=== PATIENT | male | born 1970 | race Caucasian/White ===

== ENCOUNTER 2016-09-26 01:27 | Emergency (ER) | payer BC, OTHER ==
[2016-09-26 03:59] VITALS: BP 123/80
--- NOTE | 2016-09-26 05:07 | ED ---
Yonathan Acosta Billy, scribed for Vinay Hauser MD on 09/26/16 at 0259 . Lower Extremity - HPI Summary HPI Summary: Patient is a 46 year-old male coming to [facility] with right calf pain and swelling. He states that 10 days ago, there was pain and swelling after playing softball, but it improved after 3 days. 3 days ago, the swelling returned, and he began to notice a rash on the right calf yesterday. He has been taking ibuprofen and applying ice with little effect. No history of blood clots. - History of Current Complaint Chief Complaint: EDExtremityLower Stated Complaint: RT CALF SWELLING Time Seen by Provider: 09/26/16 02:46 Hx Obtained From: Patient Mechanism Of Injury: Unknown Onset of Pain: Days Severity Initially: Moderate Severity Currently: Moderate Pain Intensity: 4 Pain Scale Used: 0-10 Numeric Timing: Constant Location: Is Discrete @ - right calf Associated Signs And Symptoms: Positive: Swelling, Redness Aggravating Factor(s): Nothing Alleviating Factor(s): Nothing - Allergies/Home Medications Allergies/Adverse Reactions: Allergies Allergy/AdvReac Type Severity Reaction Status Date / Time No Known Allergies Allergy Verified 09/26/16 01:34 PMH/Surg Hx/FS Hx/Imm Hx Endocrine/Hematology History: Denies: Hx Diabetes Cardiovascular History: Reports: Hx Hypertension - ON MEDS STARTING 08/2015 Denies: Hx Congestive Heart Failure, Hx Pacemaker/ICD Respiratory History: Reports: Hx Asthma - USES INHALER PRN GI History: Reports: Hx Crohn's Disease - SURGERY, Hx Gastroesophageal Reflux Disease - ON MEDS Comment Only: Other GI Disorders - LAP BAND 2009 History: Denies: Hx Dialysis, Hx Renal Disease Musculoskeletal History: Reports: Other Musculoskeletal History - LEFT SHOULDER INJURY 2016 Sensory History: Denies: Hx Contacts or Glasses, Hx Hearing Aid Opthamlomology History: Denies: Hx Contacts or Glasses Psychiatric History: Denies: Hx Panic Disorder - Surgical History Surgery Procedure, Year, and Place: INTESTINAL SURGERY FOR CROHN'S X 2 [facility]. GANGLION CYST REMOVAL, RIGHT WRIST 2014 [facility] [place] Hx Anesthesia Reactions: No Infectious Disease History: Denies: Traveled Outside the [place] in Last 30 Days - Family History Known Family History: Negative: Cardiac Disease, Hypertension, Diabetes - Social History Alcohol Use: Weekly Alcohol Amount: 7 OR MONTH BEER Substance Use Type: Reports: None Smoking Status (MU): Former Smoker Review of Systems Negative: Fever Positive: Myalgia, Edema Positive: Rash All Other Systems Reviewed And Are Negative: Yes Physical Exam Triage Information Reviewed: Yes Vital Signs On Initial Exam: Initial Vitals Temp Pulse Resp BP Pulse Ox 97.8 F 87 16 152/94 100 09/26/16 01:30 09/26/16 01:30 09/26/16 01:30 09/26/16 01:30 09/26/16 01:30 Vital Signs Reviewed: Yes Appearance: Positive: Well-Appearing, Pain Distress - mild discomfort Skin: Positive: Warm Head/Face: Positive: Normal Head/Face Inspection Eyes: Positive: GARRICK ENT: Positive: Hearing grossly normal Neck: Positive: Supple Respiratory/Lung Sounds: Positive: Clear to Auscultation, Breath Sounds Present Cardiovascular: Positive: RRR Abdomen Description: Positive: Nontender, Soft Bowel Sounds: Positive: Present Musculoskeletal: Positive: Les Sign Left Neurological: Positive: Alert, Oriented to Person Place, Time Psychiatric: Positive: Affect/Mood Appropriate Diagnostics - Vital Signs Vital Signs Temp Pulse Resp BP Pulse Ox 09/26/16 01:51 99 F 78 18 136/92 95 09/26/16 01:30 97.8 F 87 16 152/94 100 - Laboratory Lab Statement: Any lab studies that have been ordered have been reviewed, and results considered in the medical decision making process. - Ultrasound No standard instances Ultrasound Interpretation Completed By: Radiologist - RLFarrukh US: No DVT. Re-Evaluation - Re-Evaluation First Eval Change: Improved Lower Extremity Course/Dx - Diagnoses Provider Diagnoses: Leg pain Discharge - Discharge Plan Condition: Stable Disposition: HOME Patient Education Materials: Leg Pain (ED) Referrals: Aleisha MARIEE LINE ASSIGNERSimi [Primary Care Provider] - The documentation as recorded by the Yonathan roa Billy accurately reflects the service I personally performed and the decisions made by me, Vinay Hauser MD.
--- NOTE | 2016-09-26 07:35 | RAD ---
INDICATION: Right lower extremity swelling. COMPARISON: There are no prior studies available for comparison. TECHNIQUE: Multiple real-time, color flow and Doppler tracings of the right lower extremity were obtained. FINDINGS: The common femoral, femoral, profunda femoral and popliteal veins all demonstrate normal compressibility, augmentation with compression and phasic response with respiration. The posterior tibial veins demonstrate normal compressibility and augmentation with compression. There was limited visualization of the peroneal veins which were seen with color Doppler imaging only. IMPRESSION: SLIGHTLY LIMITED EXAMINATION OF THE CALF, NO EVIDENCE FOR DEEP VENOUS THROMBOSIS.
== END 2016-09-26 05:42 | disposition home or self-care (01) ==
LOC: ED 01:27
DX: M79.604 Pain in right leg (principal); R60.9 Edema, unspecified; R21 Rash and other nonspecific skin eruption; Z87.891 Personal history of nicotine dependence
CPT/HCPCS: 99282

== ENCOUNTER 2017-11-18 07:32 | Emergency (ER) | payer BC, OTHER ==
[2017-11-18 07:51] VITALS: BP 144/91
--- NOTE | 2017-11-18 07:56 | UC ---
Shoulder Pain HPI - HPI Summary HPI Summary: The patient is a 47-year-old male that presents here for the evaluation of her right clavicular injury. The injury occurred 2 days ago while at work. The patient works as a guard at a correctional facility. He was attempting to close a heavy steel door at work. He states that during the summer months they stick and are difficult to close. He threw his right shoulder into the door in an attempt to close it tightly. He developed immediate pain and swelling of the right sternal clavicular joint. He is also tender over the right acromial clavicular joint. He is right handed. - History of Current Complaint Chief Complaint: UCUpperExtremity Stated Complaint: RIGHT SHOULDER INJURY (WC) Time Seen by Provider: 11/18/17 07:50 Hx Obtained From: Patient Onset/Duration: Gradual Onset Timing: Constant Severity Initially: Moderate Severity Currently: Mild Pain Intensity: 3 Pain Scale Used: 0-10 Numeric Character: Aching Aggravating Factor(s): Movement, Lifting Alleviating Factor(s): Rest, Ice Associated Signs And Symptoms: Positive: Swelling Related History: Occupational Injury, Dominant Hand Right - Allergies/Home Medications Allergies/Adverse Reactions: Allergies Allergy/AdvReac Type Severity Reaction Status Date / Time No Known Allergies Allergy Verified 11/18/17 07:41 Home Medications: Home Medications Omeprazole CAP* [Prilosec CAP* 20 MG] 20 mg PO DAILY 11/18/17 [History Confirmed 11/18/17] traMADol TAB* [Ultram*] 50 mg PO Q6HR PRN 11/18/17 [History Confirmed 11/18/17] PMH/Surg Hx/FS Hx/Imm Hx Previously Healthy: Yes Cardiovascular History: Hypertension Respiratory History: Asthma GI/ History: Other Other GI/ History: crohns - Surgical History Surgical History: Yes Surgery Procedure, Year, and Place: INTESTINAL SURGERY FOR CROHN'S X 2 [facility]. GANGLION CYST REMOVAL, RIGHT WRIST 2014 [facility]. LEFT SHOULDER TORN BICEP TENDON 2016 - Family History Known Family History: Positive: None Negative: Cardiac Disease, Hypertension, Diabetes - Social History Alcohol Use: Occasionally Alcohol Amount: 7 OR MONTH BEER Substance Use Type: None Smoking Status (MU): Former Smoker When Did the Patient Quit Smoking/Using Tobacco: 13 years ago - Immunization History Vaccination Up to Date: Yes Review of Systems Constitutional: Negative Skin: Negative Eyes: Negative ENT: Negative Respiratory: Negative Cardiovascular: Negative Gastrointestinal: Negative Genitourinary: Negative Motor: Negative Neurovascular: Negative Musculoskeletal: Arthralgia Neurological: Negative Psychological: Negative Is Patient Immunocompromised?: No All Other Systems Reviewed And Are Negative: Yes Physical Exam Triage Information Reviewed: Yes Appearance: Well-Appearing, No Pain Distress, Well-Nourished Vital Signs: Initial Vital Signs Temp 99 F 11/18/17 07:44 Pulse 81 11/18/17 07:44 Resp 16 11/18/17 07:44 BP 144/91 11/18/17 07:44 Pulse Ox 99 11/18/17 07:44 Vital Signs Reviewed: Yes Eyes: Positive: Conjunctiva Clear ENT: Positive: Hearing grossly normal. Negative: Nasal congestion, Nasal drainage, Trismus, Muffled voice, Hoarse voice Neck: Positive: Supple, Nontender, No Lymphadenopathy Respiratory: Positive: Lungs clear, Normal breath sounds, No respiratory distress, No accessory muscle use Cardiovascular: Positive: RRR, No Murmur Musculoskeletal: Positive: Edema @ - swollen and tender right sternoclavicular joint/tender right AC joint. Slight decreased ROM Neurological: Positive: Alert Psychological Exam: Normal Skin Exam: Normal Diagnostics - Radiology No standard instances Xray Interpretation: No Acute Changes - right clav Radiology Interpretation Completed By: Radiologist Shoulder Course/Dx - Course Course Of Treatment: pt refuses work note - Differential Dx/Diagnosis Provider Diagnoses: right sternoclavicular separation. right AC joint strain Discharge - Sign-Out/Discharge Documenting (check all that apply): Discharge/Admit/Transfer - Discharge Plan Condition: Stable Disposition: HOME Patient Education Materials: Acromioclavicular Separation (ED) Referrals: Elo Bernard MD [Medical Doctor] - Additional Instructions: you have a mild AC joint strain you also have a clavicular-sternal separation ice I suggest you see your orthopedist in follow up...next week if possible - Billing Disposition and Condition Condition: STABLE Disposition: Home
--- NOTE | 2017-11-18 08:18 | RAD ---
Indication: RIGHT clavicle region pain following injury yesterday. Comparison: July 24, 2015 MRI. Technique: AP and cephalad oblique views RIGHT clavicle. REPORT AND IMPRESSION: #. Normal articular alignment. Negative for fracture. Mild soft tissue swelling cephalad to the midportion of the clavicle.
== END 2017-11-18 08:35 | disposition home or self-care (01) ==
LOC: UCCORT 07:32
DX: S43.204A Unspecified dislocation of right sternoclavicular joint, initial encounter (principal); X50.0XXA Overexertion from strenuous movement or load, initial encounter; Y93.89 Activity, other specified; Y92.149 Unspecified place in prison as the place of occurrence of the external cause; Y99.0 Civilian activity done for income or pay; I10 Essential (primary) hypertension; Z87.891 Personal history of nicotine dependence
CPT/HCPCS: 99211; G0463

== ENCOUNTER 2018-11-14 11:41 | Emergency (ER) | payer BC, OTHER ==
[2018-11-14 12:42] VITALS: BP 129/88
--- NOTE | 2018-11-14 13:28 | UC ---
Throat Pain/Nasal Kenn HPI - HPI Summary HPI Summary: 48 yo male presents with sinus pain/pressure/congestion for the last 4 days. He has been taking OTC cold medicine with little relief. Denies fever, chills, sore throat, cough, rash. - History of Current Complaint Chief Complaint: UCRespiratory Stated Complaint: SINUS CONGESTION Time Seen by Provider: 11/14/18 13:27 Hx Obtained From: Patient Onset/Duration: Gradual Onset Severity: Mild Pain Intensity: 1 Pain Scale Used: 0-10 Numeric - Allergies/Home Medications Allergies/Adverse Reactions: Allergies Allergy/AdvReac Type Severity Reaction Status Date / Time No Known Allergies Allergy Verified 11/14/18 12:42 Home Medications: Home Medications Ibuprofen [Motrin Ib] 600 mg PO ONCE PRN 11/14/18 [History Confirmed 11/14/18] Inhaled Med 11/14/18 [History] hydroCHLOROthiazide [Hydrochlorothiazide] 1 tab PO DAILY 11/14/18 [History Confirmed 11/14/18] PMH/Surg Hx/FS Hx/Imm Hx Cardiovascular History: Hypertension GI/ History: Gastroesophageal Reflux - Surgical History Surgical History: Yes Surgery Procedure, Year, and Place: INTESTINAL SURGERY FOR CROHN'S X 2 [facility]. GANGLION CYST REMOVAL, RIGHT WRIST 2014 [facility]. LEFT SHOULDER TORN BICEP TENDON 2016 - Family History Known Family History: Positive: None Negative: Cardiac Disease, Hypertension, Diabetes - Social History Occupation: Employed Full-time Lives: With Family Alcohol Use: Occasionally Alcohol Amount: 7 OR MONTH BEER Substance Use Type: None Smoking Status (MU): Former Smoker When Did the Patient Quit Smoking/Using Tobacco: 13 years ago - Immunization History Vaccination Up to Date: Yes Review of Systems All Other Systems Reviewed And Are Negative: Yes Constitutional: Positive: Negative Skin: Positive: Negative Eyes: Positive: Negative ENT: Positive: Nasal Discharge, Sinus Congestion, Sinus Pain/Tenderness Respiratory: Positive: Negative Cardiovascular: Positive: Negative Gastrointestinal: Positive: Negative Neurovascular: Positive: Negative Neurological: Positive: Negative Psychological: Positive: Negative Physical Exam - Summary Physical Exam Summary: GENERAL: NAD. WDWN. No pain distress. SKIN: No rashes, sores, lesions, or open wounds. HEENT: Head: AT/NC Eyes: EOM intact. Conjunctiva clear without inflammation or discharge. Ears: Hearing grossly normal. TMs intact, no bulging, erythema, or edema. Nose: Nasal mucosa mildly swollen and erythematous with yellow discharge. TTP maxillary and frontal sinus. Positive post nasal drip Throat: Posterior oropharynx without exudates, erythema, or tonsillar enlargement. Uvula midline. NECK: Supple. Nontender. No lymphadenopathy. CHEST: CTAB. No r/r/w. No accessory muscle use. Breathing comfortably and in no distress. CV: RRR. Without m/r/g. Pulses intact. NEURO: Alert. PSYCH: Age appropriate behavior. Triage Information Reviewed: Yes Vital Signs: Initial Vital Signs Temp 98.7 F 11/14/18 12:39 Pulse 82 11/14/18 12:39 Resp 18 11/14/18 12:39 BP 129/88 11/14/18 12:39 Pulse Ox 96 11/14/18 12:39 Vital Signs Reviewed: Yes Throat Pain/Nasal Course/Dx - Course Course Of Treatment: Sinusitis - Differential Dx/Diagnosis Provider Diagnosis: Sinusitis Discharge - Sign-Out/Discharge Documenting (check all that apply): Patient Departure All imaging exams completed and their final reports reviewed: No Studies - Discharge Plan Condition: Stable Disposition: HOME Prescriptions: Amoxicillin PO (*) [Amoxicillin 875 MG (*)] 875 mg PO BID #14 tab Patient Education Materials: Sinusitis (ED) Referrals: No Primary Care Phys,NOPCP [Primary Care Provider] - Additional Instructions: If you develop a fever, shortness of breath, chest pain, new or worsening symptoms - please call your PCP or go to the ED immediately. Your blood pressure was high at todays visit. Please see your primary provider within 4 weeks for recheck and re-evaluation. - Billing Disposition and Condition Condition: STABLE Disposition: Home
== END 2018-11-14 13:37 | disposition home or self-care (01) ==
LOC: UCEAST 11:41
DX: J32.9 Chronic sinusitis, unspecified (principal); I10 Essential (primary) hypertension; Z79.899 Other long term (current) drug therapy; Z87.891 Personal history of nicotine dependence
CPT/HCPCS: 99212; G0463

== ENCOUNTER 2019-02-09 15:57 | Emergency (ER) | payer BC ==
[2019-02-09 17:23] LABS: ABS Lymphocytes 0.6 10^3/ul (1.0-4.8); ABS Monocytes 0.4 10^3/ul (0-0.8); ABS Neutrophils 4.9 10^3/ul (1.5-7.7); Eosinophil % 0.1 %; Hematocrit 47 % (42-52); Hemoglobin 15.8 g/dL (14.0-18.0); Lymphocyte % 9.7 %; Mean Corpuscular HGB Conc 34 g/dL (31-36); Mean Corpuscular Hemoglobin 29 pg (27-31); Mean Corpuscular Volume 85 fL (80-94); Mean Platelet Volume 8.4 fL (7.4-10.4); Nucleated Red Blood Cells % 0.5; Platelet Count 166 10^3/uL (150-450); Red Cell Distribution Width 13 % (10-15)
[2019-02-09 17:31] LABS: Activated Partial Thrombo Time 33.7 seconds (26.0-38.0); INR 1.15 (0.82-1.09)
[2019-02-09 17:36] LABS: Albumin/Globulin Ratio 1.3 (1-3); BUN/Creatinine Ratio 10.8 (8-20); Calcium 8.9 mg/dL (8.6-10.3); EGFR African American 120.2 (>60); EGFR Non-African American 99.3 (>60); Potassium 3.5 mmol/L (3.5-5.0); Total Bilirubin 1.6 mg/dL (0.2-1.0)
[2019-02-09] MEDS ORDERED: Ibuprofen TAB* 800 MG PO ONE (18:02)
[2019-02-09 19:12] LABS: Erythrocyte Sed Rate 12 mm/Hr (0-14)
[2019-02-09] MEDS ORDERED: NS 0.9% 1000 ML** 1,000 ML IV ONE (19:37)
[2019-02-09] MEDS ORDERED: Ketorolac INJ* 30 MG/ML 1 ML VIAL IV PUSH ONE (19:37)
[2019-02-09] MEDS ORDERED: Ondansetron INJ* 2 MG/ML VIAL IV ONE (19:37)
--- NOTE | 2019-02-09 19:50 | ED ---
Complex/Multi-Sys Presentation - HPI Summary HPI Summary: This pt is a 48 y/o male presenting to [facility] c/o intermittent fever, nausea, vomiting, and headache since 3 days ago. Pt reports he has also had sweats, chills, and decreased PO intake. He describes a headache located on top of his head. He states he has had episodes of vomiting, however denies any today. Denies diarrhea or abd pain. He went to see his PCP today and was prescribed Augment for a sinus infection. Pt has been taking Ibuprofen and Tylenol with mild relief. Per triage note, pt had Tylenol 1000 mg at 1400 today. PMHx: Crohn's disease, HTN. His medications include Omeprazole, Hydrochlorothiazide 12.5 mg. NKDA. Pt admits to occasional alcohol use. Denies tobacco use. - History Of Current Complaint Chief Complaint: EDHeadache Time Seen by Provider: 02/09/19 19:35 Hx Obtained From: Patient Onset/Duration: Lasting Days, Still Present Timing: Days Severity Currently: Moderate Location: Pain At: - head Aggravating Factor(s): nothing Alleviating Factor(s): nothing Associated Signs And Symptoms: Positive: Headache, Nausea, Vomiting, Fever, Other - POSITIVE: chills, arthralgia. Negative: Diarrhea, Abdominal Pain - Allergies/Home Medications Allergies/Adverse Reactions: Allergies Allergy/AdvReac Type Severity Reaction Status Date / Time No Known Allergies Allergy Verified 11/14/18 12:42 Home Medications: Home Medications Hydrochlorothiazide TAB* [Hydrodiuril TAB*] 12.5 mg PO DAILY 02/09/19 [History Confirmed 02/09/19] Ibuprofen TAB* [Motrin TAB* 600 MG] 600 mg PO Q8H PRN 02/09/19 [History Confirmed 02/09/19] PMH/Surg Hx/FS Hx/Imm Hx Endocrine/Hematology History: Denies: Hx Diabetes Cardiovascular History: Reports: Hx Hypertension Denies: Hx Congestive Heart Failure, Hx Pacemaker/ICD Respiratory History: Reports: Hx Asthma - USES INHALER PRN GI History: Reports: Hx Crohn's Disease - SURGERY, Hx Gastroesophageal Reflux Disease - ON MEDS Comment Only: Other GI Disorders - LAP BAND 2009 History: Denies: Hx Dialysis, Hx Renal Disease Musculoskeletal History: Reports: Other Musculoskeletal History - LEFT SHOULDER INJURY 2016 Sensory History: Denies: Hx Contacts or Glasses, Hx Hearing Aid Opthamlomology History: Denies: Hx Contacts or Glasses Psychiatric History: Denies: Hx Panic Disorder - Surgical History Surgical History: Yes Surgery Procedure, Year, and Place: INTESTINAL SURGERY FOR CROHN'S X 2 [facility]. GANGLION CYST REMOVAL, RIGHT WRIST 2014 [facility]. LEFT SHOULDER TORN BICEP TENDON 2016 Hx Anesthesia Reactions: No - Immunization History Immunizations Up to Date: Yes Infectious Disease History: No Infectious Disease History: Denies: Traveled Outside the [place] in Last 30 Days - Family History Known Family History: Negative: Cardiac Disease, Hypertension, Diabetes - Social History Alcohol Use: Occasionally Alcohol Amount: 7 OR MONTH BEER Substance Use Type: Reports: None Smoking Status (MU): Former Smoker Review of Systems - ROS Summary Review of Systems Summary: Home Medications Medication Instructions Recorded Confirmed Type Omeprazole CAP (NF) [Prilosec CAP* 20 mg PO DAILY 11/18/17 02/09/19 History 20 MG] Hydrochlorothiazide TAB* 12.5 mg PO DAILY 02/09/19 02/09/19 History [Hydrodiuril TAB*] Ibuprofen TAB* [Motrin TAB* 600 MG] 600 mg PO Q8H PRN 02/09/19 02/09/19 History Constitutional: Other - POSITIVE: decreased PO intake Positive: Fever, Chills, Skin Diaphoresis Positive: Vomiting, Nausea. Negative: Abdominal Pain, Diarrhea Positive: Arthralgia Positive: Headache All Other Systems Reviewed And Are Negative: Yes Physical Exam - Summary Physical Exam Summary: General: Well-developed, Obese male who is mildly ill-appearing. HEENT: Normocephalic, Atraumatic. Eyes: Conjuctiva normal, PERRL. Ears: TMs within normal limits. Nares: (-) discharge, (-) erythema. Oropharynx: Clear, mucous membranes moist, (-) exudates. Neck: Soft, FROM, (-) lymphadenopathy, (-) thyromegaly, (-) JVD. Cardiovascular: Normal sinus rhythm, (-) murmur. Lungs: Clear to auscultation bilaterally (-) wheezes, (-) rales, (-) rhonchi. Abdomen: Soft, non-tender, non-distended, (-) organomegaly, normal bowel sounds. Back: (-) CVA tenderness Extremities: No edema. Skin: Warm and diaphoretic, (-) rash. Neuro: Alert and oriented x3, no focal deficits. Psychiatric: Mood normal, affect normal. Triage Information Reviewed: Yes Vital Signs On Initial Exam: Initial Vitals Temp Pulse Resp BP Pulse Ox 99.8 F 116 18 151/93 99 02/09/19 16:12 02/09/19 16:12 02/09/19 16:12 02/09/19 16:12 02/09/19 16:12 Vital Signs Reviewed: Yes Diagnostics - Vital Signs Vital Signs Temp Pulse Resp BP Pulse Ox 02/09/19 17:54 100.8 F 105 20 135/98 96 02/09/19 16:12 99.8 F 116 18 151/93 99 - Laboratory Lab Results: Lab Results 02/09/19 02/09/19 02/09/19 Range/Units 17:09 17:09 17:09 WBC 6.0 (3.5-10.8) 10^3/uL RBC 5.50 H (4.18-5.48) 10^6 /uL Hgb 15.8 (14.0-18.0) g/dL Hct 47 (42-52) % MCV 85 (80-94) fL MCH 29 (27-31) pg MCHC 34 (31-36) g/dL RDW 13 (10-15) % Plt Count 166 (150-450) 10^3/uL MPV 8.4 (7.4-10.4) fL Neut % (Auto) 82.5 % Lymph % (Auto) 9.7 % [place] % (Auto) 7.2 % Eos % (Auto) 0.1 % Baso % (Auto) 0.5 % Absolute Neuts (auto) 4.9 (1.5-7.7) 10^3/ul Absolute Lymphs (auto) 0.6 L (1.0-4.8) 10^3/ul Absolute Monos (auto) 0.4 (0-0.8) 10^3/ul Absolute Eos (auto) 0.0 (0-0.6) 10^3/ul Absolute Basos (auto) 0.0 (0-0.2) 10^3/ul Absolute Nucleated RBC 0.0 10^3/ul Nucleated RBC % 0.5 ESR 12 (0-14) mm/Hr INR (Anticoag Therapy) 1.15 H (0.82-1.09) APTT 33.7 (26.0-38.0) seconds Sodium 136 (135-145) mmol/L Potassium 3.5 (3.5-5.0) mmol/L Chloride 102 (101-111) mmol/L Carbon Dioxide 29 (22-32) mmol/L Anion Gap 5 (2-11) mmol/L BUN 9 (6-24) mg/dL Creatinine 0.83 (0.67-1.17) mg/dL Est GFR ( Amer) 120.2 (>60) Est GFR (Non-Af Amer) 99.3 (>60) BUN/Creatinine Ratio 10.8 (8-20) Glucose 123 H (70-100) mg/dL Lactic Acid (0.5-2.0) mmol/L Calcium 8.9 (8.6-10.3) mg/dL Total Bilirubin 1.60 H (0.2-1.0) mg/dL AST 162 H (13-39) U/L ALT 255 H (7-52) U/L Alkaline Phosphatase 121 H (34-104) U/L Total Protein 7.0 (6.4-8.9) g/dL Albumin 4.0 (3.2-5.2) g/dL Globulin 3.0 (2-4) g/dL Albumin/Globulin Ratio 1.3 (1-3) Lipase 90 H (11.0-82.0) U/L 02/09/19 Range/Units 17:09 WBC (3.5-10.8) 10^3/uL RBC (4.18-5.48) 10^6 /uL Hgb (14.0-18.0) g/dL Hct (42-52) % MCV (80-94) fL MCH (27-31) pg MCHC (31-36) g/dL RDW (10-15) % Plt Count (150-450) 10^3/uL MPV (7.4-10.4) fL Neut % (Auto) % Lymph % (Auto) % [place] % (Auto) % Eos % (Auto) % Baso % (Auto) % Absolute Neuts (auto) (1.5-7.7) 10^3/ul Absolute Lymphs (auto) (1.0-4.8) 10^3/ul Absolute Monos (auto) (0-0.8) 10^3/ul Absolute Eos (auto) (0-0.6) 10^3/ul Absolute Basos (auto) (0-0.2) 10^3/ul Absolute Nucleated RBC 10^3/ul Nucleated RBC % ESR (0-14) mm/Hr INR (Anticoag Therapy) (0.82-1.09) APTT (26.0-38.0) seconds Sodium (135-145) mmol/L Potassium (3.5-5.0) mmol/L Chloride (101-111) mmol/L Carbon Dioxide (22-32) mmol/L Anion Gap (2-11) mmol/L BUN (6-24) mg/dL Creatinine (0.67-1.17) mg/dL Est GFR ( Amer) (>60) Est GFR (Non-Af Amer) (>60) BUN/Creatinine Ratio (8-20) Glucose (70-100) mg/dL Lactic Acid 0.6 (0.5-2.0) mmol/L Calcium (8.6-10.3) mg/dL Total Bilirubin (0.2-1.0) mg/dL AST (13-39) U/L ALT (7-52) U/L Alkaline Phosphatase (34-104) U/L Total Protein (6.4-8.9) g/dL Albumin (3.2-5.2) g/dL Globulin (2-4) g/dL Albumin/Globulin Ratio (1-3) Lipase (11.0-82.0) U/L Result Diagrams: 02/09/19 17:09 02/09/19 17:09 Lab Statement: Any lab studies that have been ordered have been reviewed, and results considered in the medical decision making process. - Radiology Chest XR Radiology Interpretation Completed By: ED Physician Summary of Radiographic Findings: No obvious infiltrate or pleural effusion. - Ultrasound No standard instances Ultrasound Interpretation Completed By: Radiologist Summary of Ultrasound Findings: Gallbladder US IMPRESSION: 1. No acute findings. No calcified gallstones. 2. Hepatic steatosis with probable focus of fatty sparing adjacent to gallbladder fossa. 3. Right renal cyst, minimally larger than on prior study, with thin mural calcifications. 4. Pancreas mostly obscured by bowel gas. Dr. Mcclendon has reviewed this report. Re-Evaluation - Re-Evaluation First Eval Re-Evaluation Time: 23:21 Change: Improved Comment: Pt reports feeling better. I have discussed results with the patient and discussed his symptoms are probably viral. Discussed symptoms that warrant immediate return to the ED. Complex Multi-Symp Course/Dx Assessment/Plan: Pt is a 48 y/o male presenting to [facility] c/o intermittent fever , nausea, vomiting, and headache since 3 days ago. Pt reports he has also had sweats, chills, and decreased PO intake. He describes a headache located on top of his head. He states he has had episodes of vomiting, however denies any today. Denies diarrhea or abd pain. Lab work remarkable for total bilirubin of 1.6, AST of 162, ALT of 255, alkaline phosphatase of 121, lipase of 90. Hepatitis panel is negative. Chest XR is negative for obvious infiltrate or pleural effusion. Gallbladder US shows 1. No acute findings. No calcified gallstones. 2. Hepatic steatosis with probable focus of fatty sparing adjacent to gallbladder fossa. 3. Right renal cyst, minimally larger than on prior study , with thin mural calcifications. 4. Pancreas mostly obscured by bowel gas. In the ED course the pt was given IV fluids, Motrin, Toradol, Zofran. Patient reports feeling better after medications. I have discussed results with the patient and discussed his symptoms are probably viral. He will be discharged home with follow up from his PCP in 3 days. he was instructed to return to the ED for any new or worsening symptoms. - Diagnoses Provider Diagnoses: Viral illness, Fever Discharge ED - Sign-Out/Discharge Documenting (check all that apply): Patient Departure - Discharge home Patient Received Moderate/Deep Sedation with Procedure: No - Discharge Plan Condition: Stable Disposition: HOME Patient Education Materials: Fever in Adults (ED), Viral Syndrome (ED) Forms: *Work Release Referrals: [facility] [Outside] Additional Instructions: Please follow up with your primary care provider within three days. If you don' t have one, please follow up with [facility]. Please return to the ED for any new or worsening symptoms. - Billing Disposition and Condition Condition: STABLE Disposition: Home - Attestation Statements Document Initiated by Scribe: Yes Documenting Scribe: Nicole Lisa Provider For Whom [facility] is Documenting (Include Credential): MD Anca Mosese Attestation: I, Nicole Lisa, scribed for Dr. Marcella Mcclendon MD on 02/10/19 at 0039. Scribe Documentation Reviewed: Yes Provider Attestation: The documentation as recorded by the scribe, Nicole Lisa accurately reflects the service I personally performed and the decisions made by me, Dr. Marcella Mcclendon MD Status of Scribe Document: Viewed
[2019-02-09 20:28] LABS: Influenza A Molecular NEGATIVE (Negative); Influenza B Molecular NEGATIVE (Negative)
[2019-02-09 21:24] LABS: Urine Appearance Clear; Urine Bacteria Absent (Absent); Urine Bilirubin Negative (Negative); Urine Blood Negative (Negative); Urine Color Amber; Urine Glucose Negative (Negative); Urine Ketones 1+ (Negative); Urine Nitrite Negative (Negative); Urine Protein 1+(30 mg/dL) (Negative); Urine Red Blood Cell Trace(0-2/hpf) (Absent); Urine Specific Gravity 1.016 (1.010-1.030); Urine Urobilinogen Positive (Negative); Urine White Blood Cell Trace(0-5/hpf) (Absent)
[2019-02-09 22:42] LABS: Hepatitis C Antibody Negative (Negative)
[2019-02-09 22:56] LABS: Hepatitis B Surface Antigen Nonreactive (Nonreactive)
[2019-02-09] MEDS ORDERED: O ndansetron ODT 4MG 5TAB PRPK 4 MG PAK PO ONE (23:29)
[2019-02-09 23:53] VITALS: BP 145/92
== END 2019-02-09 23:52 | disposition home or self-care (01) ==
LOC: ED 15:57
DX: B34.9 Viral infection, unspecified (principal); K76.0 Fatty (change of) liver, not elsewhere classified; N28.1 Cyst of kidney, acquired; I10 Essential (primary) hypertension; K50.90 Crohn's disease, unspecified, without complications; J45.909 Unspecified asthma, uncomplicated; Z87.891 Personal history of nicotine dependence; Z79.899 Other long term (current) drug therapy
CPT/HCPCS: 36415; 71045; 76705; 80053; 80074; 81003; 81015; 83605; 83690; 85025; 85610; 85652; 85730; 87086; 96361; 96374; 96375; 99284; A9270-GY; J1885; J2405

== ENCOUNTER 2019-02-12 11:19 | Emergency (ER) | payer BC ==
[2019-02-12 13:07] LABS: ABS Monocytes 0.9 10^3/ul (0-0.8); ABS Neutrophils 6.1 10^3/ul (1.5-7.7); Eosinophil % 0.5 %; Hematocrit 45 % (42-52); Hemoglobin 15.2 g/dL (14.0-18.0); Lymphocyte % 12.2 %; Mean Corpuscular HGB Conc 34 g/dL (31-36); Mean Corpuscular Hemoglobin 29 pg (27-31); Mean Corpuscular Volume 84 fL (80-94); Mean Platelet Volume 8.5 fL (7.4-10.4); Nucleated Red Blood Cells % 0.1; Platelet Count 199 10^3/uL (150-450); Red Blood Count 5.34 10^6 /uL (4.18-5.48); Red Cell Distribution Width 14 % (10-15)
[2019-02-12 13:23] LABS: Albumin 3.7 g/dL (3.2-5.2); Albumin/Globulin Ratio 1.2 (1-3); BUN/Creatinine Ratio 13.2 (8-20); C Reactive Protein 140.66 mg/L (<8.01); EGFR African American 151.2 (>60); Globulin 3.1 g/dL (2-4); Potassium 3.7 mmol/L (3.5-5.0); Total Protein 6.8 g/dL (6.4-8.9)
[2019-02-12 14:51] VITALS: BP 130/79
--- NOTE | 2019-02-12 17:59 | ED ---
Complex/Multi-Sys Presentation - HPI Summary HPI Summary: Patient is a 48-year-old male who presents emergency department for ongoing headache symptoms of headache, congestion, subjective fever and body aches times roughly one week. Patient was seen by family doctor on Wednesday and prescribed Augmentin for potential sinusitis. Patient states he felt worse and came to the ER that night. He had blood work which showed elevated liver enzymes. Gallbladder ultrasound negative for acute findings at that time. Chest x-ray negative for acute findings. Patient states he was to return to work tonight but was still feeling unwell and so presents for reevaluation. Symptoms are moderate in severity. Patient isn't taking Tylenol and Motrin with minimal relief of his pain. 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 Otherwise past medical history of hypertension and GERD. - History Of Current Complaint Chief Complaint: EDGeneral Time Seen by Provider: 02/12/19 12:01 Hx Obtained From: Patient - Allergies/Home Medications Allergies/Adverse Reactions: Allergies Allergy/AdvReac Type Severity Reaction Status Date / Time No Known Allergies Allergy Verified 02/12/19 11:24 Home Medications: Home Medications Amoxicillin/Clavulanate TAB* [Augmentin TAB 875*] 875 mg PO BID 02/12/19 [ History Confirmed 02/12/19] PMH/Surg Hx/FS Hx/Imm Hx Previously Healthy: Yes Endocrine/Hematology History: Denies: Hx Diabetes Cardiovascular History: Reports: Hx Hypertension Denies: Hx Congestive Heart Failure, Hx Pacemaker/ICD Respiratory History: Reports: Hx Asthma - USES INHALER PRN GI History: Reports: Hx Crohn's Disease - SURGERY, Hx Gastroesophageal Reflux Disease - ON MEDS Comment Only: Other GI Disorders - LAP BAND 2010 History: Denies: Hx Dialysis, Hx Renal Disease Musculoskeletal History: Reports: Other Musculoskeletal History - LEFT SHOULDER INJURY 2016 Sensory History: Denies: Hx Contacts or Glasses, Hx Hearing Aid Opthamlomology History: Denies: Hx Contacts or Glasses Psychiatric History: Denies: Hx Panic Disorder - Surgical History Surgery Procedure, Year, and Place: INTESTINAL SURGERY FOR CROHN'S X 2 [facility]. GANGLION CYST REMOVAL, RIGHT WRIST 2014 [facility]. LEFT SHOULDER TORN BICEP TENDON 2016 Hx Anesthesia Reactions: No - Immunization History Immunizations Up to Date: Yes Infectious Disease History: No Infectious Disease History: Denies: Traveled Outside the [place] in Last 30 Days - Family History Known Family History: Positive: Non-Contributory Negative: Cardiac Disease, Hypertension, Diabetes - Social History Occupation: Employed Full-time Lives: With Family Alcohol Use: Occasionally Alcohol Amount: 7 OR MONTH BEER Substance Use Type: Reports: None Smoking Status (MU): Former Smoker Review of Systems Positive: Fever, Chills Eyes: Negative Positive: Nasal Discharge Cardiovascular: Negative Respiratory: Negative Gastrointestinal: Negative Genitourinary: Negative Positive: Myalgia Skin: Negative Negative: Rash Positive: Headache. Negative: Weakness, Paresthesia, Numbness, Syncope All Other Systems Reviewed And Are Negative: Yes Physical Exam Triage Information Reviewed: Yes Vital Signs On Initial Exam: Initial Vitals Temp Pulse Resp BP Pulse Ox 98.2 F 97 16 135/97 96 02/12/19 11:21 02/12/19 11:21 02/12/19 11:21 02/12/19 11:21 02/12/19 11:21 Vital Signs Reviewed: Yes Appearance: Positive: Well-Appearing - Pt. sitting up in bed in NAD. Son present. Skin: Positive: Warm, Dry Head/Face: Positive: Normal Head/Face Inspection Eyes: Positive: Normal, EOMI ENT: Positive: Pharyngeal erythema, Other - Fluid level behind right TM. Left TM cloudy.. Negative: Tonsillar swelling, Tonsillar exudate Neck: Positive: Supple, Nontender. Negative: Nuchal Rigidity Respiratory/Lung Sounds: Positive: Clear to Auscultation, Breath Sounds Present Cardiovascular: Positive: Normal, RRR Abdomen Description: Positive: Nontender, Soft Musculoskeletal: Positive: Normal, Strength/ROM Intact Neurological: Positive: Normal, CN Intact II-III Psychiatric: Positive: Affect/Mood Appropriate Diagnostics - Vital Signs Vital Signs Temp Pulse Resp BP Pulse Ox 02/12/19 15:09 99.8 F 88 16 130/79 98 02/12/19 14:49 99.3 F 88 16 130/79 98 02/12/19 11:21 98.2 F 97 16 135/97 96 - Laboratory Lab Results: Lab Results 02/12/19 02/12/19 Range/Units 12:54 12:54 WBC 8.0 (3.5-10.8) 10^3/uL RBC 5.34 (4.18-5.48) 10^6 /uL Hgb 15.2 (14.0-18.0) g/dL Hct 45 (42-52) % MCV 84 (80-94) fL MCH 29 (27-31) pg MCHC 34 (31-36) g/dL RDW 14 (10-15) % Plt Count 199 (150-450) 10^3/uL MPV 8.5 (7.4-10.4) fL Neut % (Auto) 75.9 % Lymph % (Auto) 12.2 % [place] % (Auto) 11.0 % Eos % (Auto) 0.5 % Baso % (Auto) 0.4 % Absolute Neuts (auto) 6.1 (1.5-7.7) 10^3/ul Absolute Lymphs (auto) 1.0 (1.0-4.8) 10^3/ul Absolute Monos (auto) 0.9 H (0-0.8) 10^3/ul Absolute Eos (auto) 0.0 (0-0.6) 10^3/ul Absolute Basos (auto) 0.0 (0-0.2) 10^3/ul Absolute Nucleated RBC 0.0 10^3/ul Nucleated RBC % 0.1 Sodium 138 (135-145) mmol/L Potassium 3.7 (3.5-5.0) mmol/L Chloride 103 (101-111) mmol/L Carbon Dioxide 26 (22-32) mmol/L Anion Gap 9 (2-11) mmol/L BUN 9 (6-24) mg/dL Creatinine 0.68 (0.67-1.17) mg/dL Est GFR ( Amer) 151.2 (>60) Est GFR (Non-Af Amer) 125.0 (>60) BUN/Creatinine Ratio 13.2 (8-20) Glucose 109 H (70-100) mg/dL Calcium 9.0 (8.6-10.3) mg/dL Total Bilirubin 1.00 (0.2-1.0) mg/dL AST 106 H (13-39) U/L ALT 223 H (7-52) U/L Alkaline Phosphatase 146 H (34-104) U/L C-Reactive Protein 140.66 H (<8.01) mg/L Total Protein 6.8 (6.4-8.9) g/dL Albumin 3.7 (3.2-5.2) g/dL Globulin 3.1 (2-4) g/dL Albumin/Globulin Ratio 1.2 (1-3) Result Diagrams: 02/12/19 12:54 02/12/19 12:54 Lab Statement: Any lab studies that have been ordered have been reviewed, and results considered in the medical decision making process. Complex Multi-Symp Course/Dx Course Of Treatment: Patient presenting with the above symptoms. He is afebrile the ER with stable vital signs. Exam is benign. He has no nuchal rigidity or concerns for meningitis. He does have fluid and right TM. Did recheck basic labs and liver enzymes are improving. Normal WBC. Hepatitis panel was sent earlier in the week and is negative. Results discussed with patient. Suspect most likely viral etiology. Recommend Flonase for serous otitis. Pending Lyme titer. Patient notes concern of ongoing headache and neck pain. Dr. Portillo examined patient and agrees no further workup is needed at this time. Advised patient close follow-up with PCP and will return to the ER symptoms change or worsen. Patient understands and agrees with plan. - Diagnoses Provider Diagnoses: Viral syndrome, Headache Discharge ED - Sign-Out/Discharge Documenting (check all that apply): Patient Departure Patient Received Moderate/Deep Sedation with Procedure: No - Discharge Plan Condition: Good Disposition: HOME Patient Education Materials: Acute Headache (ED), Viral Syndrome (ED) Referrals: [facility] [Outside] Additional Instructions: Call your PCP tomorrow for a recheck appointment within 2-3 days Ibuprofen for pain as directed Recommend flonase as directed Increase fluids and rest Will call if Lyme test is positive Return to ER if symptoms change or worsen - Billing Disposition and Condition Condition: GOOD Disposition: Home
[2019-02-14 21:19] LABS: B garinii/B afzelii PCR Negative (Negative); B mayonii PCR Negative (Negative)
== END 2019-02-12 15:10 | disposition home or self-care (01) ==
LOC: ED 11:19
DX: B34.9 Viral infection, unspecified (principal); R51 Headache; I10 Essential (primary) hypertension; J45.909 Unspecified asthma, uncomplicated; K21.9 Gastro-esophageal reflux disease without esophagitis; Z87.891 Personal history of nicotine dependence
CPT/HCPCS: 36415; 80053; 85025; 86140; 87476; 87798; 99282